=== PATIENT | female | born 1945 | race Native Hawaiian/Other Pacific Islander ===

== ENCOUNTER 2018-05-19 23:41 | Inpatient (IN) | payer MEDICARE ==
[2018-05-20] MEDS ORDERED: Enalaprilat 2.5 MG/2 ML IV ONE (00:21)
[2018-05-20 00:25] LABS: BASO # 0.1 K/uL (0.0-0.2); BASO % 1.2 % (0.0-2.0); EOS # 0.2 K/uL (0.0-0.7); EOS % 2.8 % (0.0-4.0); HEMOGLOBIN 15.7 g/dL (11.0-16.0); LYMPH # 1.5 K/uL (1.0-4.3); LYMPH % 19.2 % (20.0-40.0); MEAN CELL VOLUME 86.5 fL (81.0-99.0); MEAN CORPUSCULAR HEMOGLOBIN 29.8 pg (27.0-31.0); MEAN CORPUSCULAR HGB CONC 34.4 g/dL (33.0-37.0); MEAN PLATELET VOLUME 9.9 fL (7.2-11.7); MONO # 0.4 K/uL (0.0-0.8); MONO % 5.1 % (0.0-10.0); NEUT # 5.6 K/uL (1.8-7.0); NEUT % 71.7 % (50.0-75.0); NRBC % 0.1 % (0.0-2.0); RBC 5.29 Mil/uL (3.80-5.20); RED CELL DISTRIBUTION WIDTH 14.7 % (11.5-14.5); WHITE BLOOD COUNT 7.8 K/uL (4.8-10.8)
[2018-05-20] MEDS ORDERED: Enalaprilat 2.5 MG/2 ML ONE (00:34)
--- NOTE | 2018-05-20 00:42 | C.PDOC ---
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 She reports her blood pressure has been uncontrollably high. She admits to vomiting once. The patient denies any diarrhea, chest pain, headache or shortness of breath. Time Seen by Provider: 05/19/18 23:54 Chief Complaint (Nursing): Dizziness/Lightheaded History Per: Patient History/Exam Limitations: no limitations Onset/Duration Of Symptoms: Mins Current Symptoms Are (Timing): Still Present Recent travel outside of the [place]: No Past Medical History Reviewed: Historical Data, Nursing Documentation, Vital Signs Vital Signs: Last Vital Signs Temp 97.8 F 05/20/18 03:55 Pulse 60 05/20/18 05:01 Resp 17 05/20/18 05:01 BP 163/74 H 05/20/18 05:01 Pulse Ox 98 05/20/18 05:31 - Medical History PMH: HTN Other Surgeries: left breast lumpectomy Family History: States: Unknown Family Hx - Social History Hx Alcohol Use: No Hx Substance Use: No Review Of Systems Except As Marked, All Systems Reviewed And Found Negative. Constitutional: Negative for: Fever Cardiovascular: Negative for: Chest Pain Respiratory: Negative for: Shortness of Breath Gastrointestinal: Positive for: Nausea, Vomiting (x1 episode). Negative for: Diarrhea Neurological: Positive for: Dizziness Physical Exam - Physical Exam Appears: Well, Non-toxic, No Acute Distress Skin: Normal Color, Warm, Dry Head: Atraumatic, Normacephalic Eye(s): bilateral: Normal Inspection, PERRL, EOMI Oral Mucosa: Moist Chest: Symmetrical Cardiovascular: Rhythm Regular, No Murmur Respiratory: Normal Breath Sounds, No Rales, No Rhonchi, No Wheezing Gastrointestinal/Abdominal: Bowel Sounds, No Tenderness, No Distention Extremity: Bilateral: Atraumatic, Normal Color And Temperature, Normal ROM Neurological/Psych: Oriented x3, Normal Speech ED Course And Treatment - Laboratory Results Result Diagrams: 05/20/18 00:21 05/20/18 00:21 Interpretation Of ECG: Sinus : first degree AV lock (65 bpm). TN: 234 ms. left axis, LVH, PVCs, no ischemic changes. QRS 90 ms. QT-438 ms. QTc-455 ms O2 Sat by Pulse Oximetry: 98 (RA) Pulse Ox Interpretation: Normal - CT Scan/US Head Other Rad Studies (CT/US): Read By Radiologist, Radiology Report Reviewed CT/US Interpretation: FINDINGS: Brain: Mild atrophy. No intracranial hemorrhage. 0.8 x 0.7 x 0.6 cm dural calcification vs calcified. meningioma along right frontal convexity. Few scattered subtle foci of decreased attenuation within. periventricular/subcortical white matter. No definite edema. Ventricles: No hydrocephalus. Bones/joints: No acute fracture. Soft tissues: Unremarkable. Sinuses: Scattered minimal mucosal thickening. Minimal focal mucosal thickening or fluid of LEFT. sphenoid sinus. Mastoid air cells: No significant effusion. Orbits: Unremarkable as visualized. IMPRESSION: 1. Probable chronic microvascular ischemic changes. Acute infarction may be CT occult within first. 24 hours. If a focal deficit persists, consider followup CT or MRI for further evaluation. 2. Incidental/non-acute findings are described above. Progress Note: Upon arrival pressure is 205/97 Critical Care Time - Critical Care Note Total Time (in mins): 35 Documented critical care: time excludes all time spent performing seperately billable procedures. Medical Decision Making Medical Decision Making: Impression: 72 y/o female feeling dizzy, nauseous, and 1 episode of vomiting pt required and reciueved my immediate medical attention for life threatening illness. Plan: --EKG --CMP --Troponin I --CBC --Chest X-Ray --Vasotec 1.25 mg --Apresoline 50 mg PO CBC/Chem: unremarkable Troponin-negative vasotec 1.25 mg IVP given. 0202- On reeval Pt feels a little better. 0205- paged Dr. Montes hydralazine [address] head ordered and reviewed without acute pathology 0210- spoke with Dr. Montes. 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 - Scribe Statement The provider has reviewed the documentation as recorded by the Scribe (Imani Suarez) All medical record entries made by the Scribe were at my direction and personally dictated by me. I have reviewed the chart and agree that the record accurately reflects my personal performance of the history, physical exam, medical decision making, and the department course for this patient. I have also personally directed, reviewed, and agree with the discharge instructions and disposition.
[2018-05-20 01:13] LABS: ALB/GLOB RATIO 1.1 (1.0-2.1); ALBUMIN 4.2 g/dL (3.5-5.0); ALT/SGPT 56 U/L (9-52); AST/SGOT 41 U/L (14-36); BLOOD UREA NITROGEN 25 mg/dL (7-17); CALCIUM 9.6 mg/dl (8.6-10.4); GFR AFRICAN-AMERICAN 53; GFR NON-AFRICAN AMERICAN 44
[2018-05-20 05:13] VITALS: BMI 30.2
--- NOTE | 2018-05-20 07:10 | CP.PCM.HP ---
History of Present Illness - History of Present Illness History of Present Illness: chart reviewed Vitals- getting better on hydralazine CT Head pending Nurse notes noted uneventful labs noted 72 Y.o. Female with PMH Hypertension Hyperuricemia Breast Ca s/p lumpectomy s/p RT Cholesterol not on meds High sugar Cervical LAP- being followed up Patient admitted for acute high BP , vomiting and headache for further evaluation and management ROS headache vomtiing few hours before ER patient had physical exertion hours earlier- ballroom and line dancing no profuse sweating no SOB no tremors no sense of doom patient had good BP control for years then had one episode of acute BP elevation in December, and medication was adjusted and remained control, but had another acute BP eleveation on current treatment plan with head ache vomiting no profuse sweating no palpitation Sugery Immunization Social- non etoh non smoker Present on Admission - Present on Admission Any Indicators Present on Admission: No History of DVT/PE: No History of Uncontrolled Diabetes: No Urinary Catheter: No Decubitus Ulcer Present: No Review of Systems - Constitutional Constitutional: absent: Anorexia, Chills, Fatigue, Fever, Lethargy, Weight Loss , Weakness (headaches) - EENT Eyes: absent: Other Visual Disturbances Nose/Mouth/Throat: absent: Epistaxis, Nasal Obstruction, Sore Throat - Breasts Breasts: absent: Pain - Cardiovascular Cardiovascular: absent: Chest Pain, Diaphoresis, Dyspnea on Exertion, Palpitations, Syncope - Respiratory Respiratory: absent: Cough, Dyspnea on Exertion, Wheezing, Chest Congestion - Gastrointestinal Gastrointestinal: Vomiting (prior to admission). absent: Abdominal Pain, Constipation, Diarrhea - Genitourinary Genitourinary: absent: Difficulty Urinating, Flank Pain - Reproductive: Female Reproductive:Female: Post Menopausal - Menstruation Menstruation: Post Menopausal - Musculoskeletal Musculoskeletal: Muscle Cramps. absent: Abnormal Gait, Deformity, Limited Range of Motion - Integumentary Integumentary: absent: Rash, Skin Ulcer, Sores, Jaundice - Neurological Neurological: absent: Abnormal Hearing, Abnormal Movements, Abnormal Speech, Behavioral Changes, Confusion, Convulsions, Dizziness, Memory Loss, Sensory Deficit - Psychiatric Psychiatric: absent: Behavioral Changes, Confusion, Hallucinations, Panic Attacks - Endocrine Endocrine: absent: Excessive Sweating - Hematologic/Lymphatic Hematologic: Lymphadenopathy. absent: Easy Bleeding, Easy Bruising Past Patient History - Past Medical History & Family History Past Medical History?: Yes - Past Social History Smoking Status: Never Smoked - CARDIAC Hx Hypertension: Yes - PULMONARY Hx Respiratory Disorders: No - NEUROLOGICAL Hx Neurological Disorder: No - HEENT Hx HEENT Problems: No - RENAL Hx Chronic Kidney Disease: No - ENDOCRINE/METABOLIC Hx Endocrine Disorders: No - HEMATOLOGICAL/ONCOLOGICAL Hx Blood Disorders: No - INTEGUMENTARY Hx Dermatological Problems: No - MUSCULOSKELETAL/RHEUMATOLOGICAL Hx Musculoskeletal Disorders: No Hx Falls: No - GASTROINTESTINAL Hx Gastrointestinal Disorders: No - GENITOURINARY/GYNECOLOGICAL Hx Genitourinary Disorders: No - PSYCHIATRIC Hx Substance Use: No - SURGICAL HISTORY Hx Surgeries: Yes (left breast lumpectomy ) Hx Breast Biopsy: Yes Other/Comment: left breast lumpectomy - ANESTHESIA Hx Anesthesia: Yes Hx Anesthesia Reactions: No Hx Malignant Hyperthermia: No Has any member of the family had a problem w/ anesthesia?: No Meds Allergies/Adverse Reactions: Allergies Allergy/AdvReac Type Severity Reaction Status Date / Time No Known Allergies Allergy Verified 05/20/18 06:08 Physical Exam - Constitutional Appears: Non-toxic, No Acute Distress (currently in ICU , had vomiting prior to admission and improved after zofran) - Head Exam Head Exam: NORMAL INSPECTION, NORMOCEPHALIC - Eye Exam Eye Exam: Normal appearance. absent: Nystagmus - ENT Exam ENT Exam: Mucous Membranes Moist - Respiratory Exam Respiratory Exam: Clear to Auscultation Bilateral, NORMAL BREATHING PATTERN - Cardiovascular Exam Cardiovascular Exam: REGULAR RHYTHM - GI/Abdominal Exam GI & Abdominal Exam: Normal Bowel Sounds, Soft - Extremities Exam Extremities exam: Positive for: normal inspection. Negative for: joint swelling , pedal edema, tenderness - Back Exam Back exam: FULL ROM - Neurological Exam Neurological exam: Alert, Normal Gait, Oriented x3 - Psychiatric Exam Psychiatric exam: Normal Affect, Normal Mood - Skin Skin Exam: Intact, Normal Color Results - Vital Signs Recent Vital Signs: Last Vital Signs Temp 97.8 F 05/20/18 03:55 Pulse 60 05/20/18 06:01 Resp 16 05/20/18 06:01 BP 149/73 05/20/18 06:01 Pulse Ox 96 05/20/18 06:01 - Labs Result Diagrams: 05/20/18 00:21 05/20/18 00:21 Labs: Laboratory Results - last 24 hr 05/20/18 05/20/18 00:21 00:21 WBC 7.8 RBC 5.29 H Hgb 15.7 Hct 45.7 MCV 86.5 MCH 29.8 MCHC 34.4 RDW 14.7 H Plt Count 190 MPV 9.9 Neut % (Auto) 71.7 Lymph % (Auto) 19.2 L [place] % (Auto) 5.1 Eos % (Auto) 2.8 Baso % (Auto) 1.2 Neut # (Auto) 5.6 Lymph # (Auto) 1.5 [place] # (Auto) 0.4 Eos # (Auto) 0.2 Baso # (Auto) 0.1 Sodium 143 Potassium 3.8 Chloride 107 Carbon Dioxide 20 L Anion Gap 20 BUN 25 H Creatinine 1.2 Est GFR ( Amer) 53 Est GFR (Non-Af Amer) 44 Random Glucose 137 H Calcium 9.6 Total Bilirubin 0.6 AST 41 H ALT 56 H Alkaline Phosphatase 74 Troponin I < 0.0120 Total Protein 7.8 Albumin 4.2 Globulin 3.6 Albumin/Globulin Ratio 1.1 Assessment & Plan - Assessment and Plan (Free Text) Assessment: Patient with Hypertension Hyperuricemia hyperglycemi Cholesterolnemia, breast Ca s/p lumpectomy S/p RT admitted due to symptomatic acute elevation in BP , , CT head showed negative- further neurological evaluation- neuro has been consulted Due to history- second acute episode of acute BP elevation on her current treatment plan (was controlled ) now with headache and vomiting, although she is negative for heavy sweating palpitations, tremors, will work out for Pheochromocytoma also cardio work up as other ossible causes - 2 D echo Hyperuricemia- will continue her allopurinol LAP_ cervical LN that disappeared CT negative suspicious finding Hyperglycemia AIC pending GI Prophylaxis DVT prophylaxis Discussed with patient and - Date & Time Date: 05/20/18 Time: 08:40
--- NOTE | 2018-05-20 07:50 | CP.PCM.CON ---
History of Present Illness - History of Present Illness History of Present Illness: CONSULTATION DICTATED UNCONTROLLED HTN RECURRENT HEADACHE NAUSEA AND VOMITING WITH DIZZY WILL DO MRI BRAIN WITH ELISHA NON FOCAL EXAM EXCEPT NEUROPATHY ANTIVERT PRN CAT BRAIN NEGATIVE Past Patient History - Past Medical History & Family History Past Medical History?: Yes - Past Social History Smoking Status: Never Smoked - CARDIAC Hx Hypertension: Yes - PULMONARY Hx Respiratory Disorders: No - NEUROLOGICAL Hx Neurological Disorder: No - HEENT Hx HEENT Problems: No - RENAL Hx Chronic Kidney Disease: No - ENDOCRINE/METABOLIC Hx Endocrine Disorders: No - HEMATOLOGICAL/ONCOLOGICAL Hx Blood Disorders: No - INTEGUMENTARY Hx Dermatological Problems: No - MUSCULOSKELETAL/RHEUMATOLOGICAL Hx Musculoskeletal Disorders: No Hx Falls: No - GASTROINTESTINAL Hx Gastrointestinal Disorders: No - GENITOURINARY/GYNECOLOGICAL Hx Genitourinary Disorders: No - PSYCHIATRIC Hx Substance Use: No - SURGICAL HISTORY Hx Surgeries: Yes Other/Comment: left breast lumpectomy - ANESTHESIA Hx Anesthesia: Yes Hx Anesthesia Reactions: No Hx Malignant Hyperthermia: No Has any member of the family had a problem w/ anesthesia?: No Meds Allergies/Adverse Reactions: Allergies Allergy/AdvReac Type Severity Reaction Status Date / Time No Known Allergies Allergy Verified 05/20/18 06:08 - Medications Medications: Current Medications Allopurinol (Zyloprim) 100 mg PO DAILY [facility] Enoxaparin Sodium (Lovenox) 40 mg SC DAILY [facility] Hydralazine HCl (Apresoline) 50 mg PO BID [facility] Last Admin: 05/20/18 02:22 Dose: 50 mg Meclizine HCl (Antivert) 25 mg PO Q8H PRN PRN Reason: Dizziness Stop: 05/25/18 07:46 Pantoprazole Sodium (Protonix Ec Tab) 40 mg PO DAILY [facility] Results - Vital Signs Recent Vital Signs: Last Vital Signs Temp 97.8 F 05/20/18 03:55 Pulse 60 05/20/18 06:01 Resp 16 05/20/18 06:01 BP 149/73 05/20/18 06:01 Pulse Ox 96 05/20/18 06:01 - Labs Result Diagrams: 05/20/18 00:21 05/20/18 00:21 Labs: Laboratory Results - last 24 hr 05/20/18 05/20/18 00:21 00:21 WBC 7.8 RBC 5.29 H Hgb 15.7 Hct 45.7 MCV 86.5 MCH 29.8 MCHC 34.4 RDW 14.7 H Plt Count 190 MPV 9.9 Neut % (Auto) 71.7 Lymph % (Auto) 19.2 L [place] % (Auto) 5.1 Eos % (Auto) 2.8 Baso % (Auto) 1.2 Neut # (Auto) 5.6 Lymph # (Auto) 1.5 [place] # (Auto) 0.4 Eos # (Auto) 0.2 Baso # (Auto) 0.1 Sodium 143 Potassium 3.8 Chloride 107 Carbon Dioxide 20 L Anion Gap 20 BUN 25 H Creatinine 1.2 Est GFR ( Amer) 53 Est GFR (Non-Af Amer) 44 Random Glucose 137 H Calcium 9.6 Total Bilirubin 0.6 AST 41 H ALT 56 H Alkaline Phosphatase 74 Troponin I < 0.0120 Total Protein 7.8 Albumin 4.2 Globulin 3.6 Albumin/Globulin Ratio 1.1
--- NOTE | 2018-05-20 08:20 | CT ---
Date of service: 05/20/2018 PROCEDURE: CT HEAD WITHOUT CONTRAST. HISTORY: headache /uncontrollable hypertension COMPARISON: None available. TECHNIQUE: Axial computed tomography images were obtained through the head/brain without intravenous contrast. Radiation dose: Total exam DLP = 826 mGy-cm. This CT exam was performed using one or more of the following dose reduction techniques: Automated exposure control, adjustment of the mA and/or kV according to patient size, and/or use of iterative reconstruction technique. FINDINGS: HEMORRHAGE: No intracranial hemorrhage. BRAIN: Mild atrophy. Scattered focal lucencies in the subcortical and periventricular white matter suggestive for chronic microvascular ischemic change. 8 x 7 x 6 millimeter dural calcification versus calcified meningioma along the right frontal convexity. Right basal ganglia calcification. VENTRICLES: Unremarkable. No hydrocephalus. CALVARIUM: Unremarkable. PARANASAL SINUSES: Scattered mucosal thickening of the paranasal sinuses. Mild focal mucosal thickening or fluid of the left sphenoid sinus. MASTOID AIR CELLS: Unremarkable as visualized. No inflammatory changes. OTHER FINDINGS: None. IMPRESSION: Probable chronic microvascular ischemic changes. Additional findings as above. If symptoms persist, consider correlation with MRI. These findings were preliminarily reported at 3:11 a.m. on 05/20/[address] Jono Hernandez from [facility].
[2018-05-20] MEDS: Enoxaparin 40 mg Syringe SC SCH (09:55)
[2018-05-20] MEDS: Pantoprazole 40 mg EC Tab PO SCH (09:57)
[2018-05-20 11:02] LABS: FREE T4 1.01 ng/dL (0.78-2.19)
[2018-05-20] MEDS ORDERED: Gadodiamide 287 mg/ml 20 ml IV ONE (12:50)
--- NOTE | 2018-05-20 15:42 | MRI ---
Date of service: 05/20/2018 PROCEDURE: MRI BRAIN WITH AND WITHOUT CONTRAST HISTORY: HX BRAST CANCER COMPARISON: Noncontrast head CT 05/20/2018. TECHNIQUE: Multiplanar, multisequence MR images of the brain were obtained with (intravenous Omniscan 11 cc) and without intravenous contrast enhancement. FINDINGS: HEMORRHAGE: None DWI: Good corticomedullary differentiation is seen. Proportional, limited, diffuse expansion of the ventriculosulcal and cisternal spaces is appreciated with white matter lucency compatible with diffuse cerebral atrophy and chronic microangiopathy. No suspicious extra-axial fluid collection is identified and the midline brain anatomy appears grossly nonfocal as imaged. There is no mass effect throughout. BRAIN PARENCHYMA: No mass,mass effect or edema. No atrophy or chronic microvascular ischemic changes. ENHANCEMENT: No abnormal intracranial enhancement. VENTRICLES: Unremarkable. No hydrocephalus. CRANIUM: A small osteoma is suggests at the anterior, right frontal calvarium near the vertex once again. ORBITS: Grossly unremarkable. PARANASAL SINUSES/MASTOIDS: Clear VASCULAR SYSTEM: Skull base flow voids intact. OTHER FINDINGS: None . IMPRESSION: Limited age related neuro degenerative findings are appreciated without evidence of intracranial metastasis at this time. No abnormal intracranial enhancement is appreciated bulb or below the tentorium. No acute intracranial findings as per above.
--- NOTE | 2018-05-20 19:06 | CON ---
Copied To: Reddy Myers MD Attending MD: Reddy Myers MD DATE: 05/20/2018 REASON FOR CONSULTATION: Dizziness. CHIEF COMPLAINT: The patient was brought into [facility] with history of recurrent episode of dizziness associating with uncontrolled blood pressure. From neurological point of view, I was called into evaluate her for further management. 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 However, the dizziness continuous, is still at present. She had vomited once. She has no history of diarrhea. No history of visual loss or double vision associating with this problem. No history of focal weakness or any involuntary movements. Similar episodes happened in December. She was admitted in [facility] in [place]. She had extensive workup including MRI of the brain, all came out normal. Following this, the patient was seen by biometrics instructor and her blood pressure medication was titrated. Lately, her primary care physicians added beta-blockers on top of her medication. PAST MEDICAL HISTORY: Left breast lumpectomy more than 10 years ago, been treated with radiation and chemotherapy. Other past medical history including hypertension. PERSONAL HISTORY: Denies smoking or alcohol use. ALLERGIES: NO KNOWN ALLERGIES. REVIEW OF SYSTEMS: A 12-point system being reviewed. From neuro, dizziness. MEDICATIONS: Hydralazine, Lovenox, Protonix, Zyloprim. PHYSICAL EXAMINATION: VITAL SIGNS: Blood pressure 163/74, mean arterial pressure of 103, respiratory rate 16, temperature afebrile, pulse rate 60 regular. NECK: Supple. No carotid bruits. HEART: Sounds regular. CHEST: Fair air entry. EXTREMITIES: No edema in legs. No meningismus noted. CRANIAL NERVE EXAMINATION: Visual field intact. Pupils reactive. Extraocular movement normal. No nystagmus. No facial sensory deficit. No facial asymmetry. Hearing is normal. Tongue is midline. Good gag. Motor examination, outstretched hand with eyes closed, no drift noted. Power is symmetric on either side. Deep tendon reflexes, biceps and brachialis absent, triceps 1+ both knees are absent. Both ankles are absent. Plantars are downgoing. Sensory examination grossly intact. Coordination: [id number] test is intact. Gait is deferred at this time. WORKUP: WBC 7.8, hemoglobin 15.7, hematocrit 45.7, platelet 190. Sodium 143, potassium 3.8, chloride 107, bicarbonate 20, BUN 25, creatinine 1.2, GFR 53, glucose 137. CT of the head reviewed by me, no official report in the computer. No gross acute pathology is noted. Mild periventricular ischemic changes with basal ganglion calcification noted. Otherwise, CAT scan of the brain does not show any acute pathology. 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 The current examination does not show any long tract sign at present. The patient can be treated symptomatically hydration and proper blood pressure control. Since she had a recent MRI of the brain for similar complaints, which she was told are normal. At this point, I do not want to repeat the MRI of the brain unless her neuro status changed. The patient could be benefited on taking meclizine as a p.r.n. basis. The patient's condition been discussed with her. She agreed with plan of management. Reddy Myers MD MTDMarjan
--- NOTE | 2018-05-20 23:34 | CARD ---
APPROVED REPORT Date of service: 05/19/2018 EKG Measurement Heart [id number] <Conclusion> Sinus rhythm with 1st degree AV block with occasional premature ventricular complexes Left axis deviation Minimal voltage criteria for LVH, may be normal variant Abnormal ECG
--- NOTE | 2018-05-20 23:40 | CP.PCM.CON ---
History of Present Illness - History of Present Illness History of Present Illness: Consulted for HTN management Past Patient History - Past Medical History & Family History Past Medical History?: Yes - Past Social History Smoking Status: Never Smoked - CARDIAC Hx Hypertension: Yes - PULMONARY Hx Respiratory Disorders: No - NEUROLOGICAL Hx Neurological Disorder: No - HEENT Hx HEENT Problems: No - RENAL Hx Chronic Kidney Disease: No - ENDOCRINE/METABOLIC Hx Endocrine Disorders: No - HEMATOLOGICAL/ONCOLOGICAL Hx Blood Disorders: No - INTEGUMENTARY Hx Dermatological Problems: No - MUSCULOSKELETAL/RHEUMATOLOGICAL Hx Musculoskeletal Disorders: No Hx Falls: No - GASTROINTESTINAL Hx Gastrointestinal Disorders: No - GENITOURINARY/GYNECOLOGICAL Hx Genitourinary Disorders: No - PSYCHIATRIC Hx Substance Use: No - SURGICAL HISTORY Hx Surgeries: Yes (left breast lumpectomy ) Hx Breast Biopsy: Yes Other/Comment: left breast lumpectomy - ANESTHESIA Hx Anesthesia: Yes Hx Anesthesia Reactions: No Hx Malignant Hyperthermia: No Has any member of the family had a problem w/ anesthesia?: No Meds Allergies/Adverse Reactions: Allergies Allergy/AdvReac Type Severity Reaction Status Date / Time No Known Allergies Allergy Verified 05/20/18 06:08 - Medications Medications: Current Medications Acetaminophen (Tylenol 325mg Tab) 650 mg PO Q6 PRN PRN Reason: Headache Last Admin: 05/20/18 09:22 Dose: 650 mg Allopurinol (Zyloprim) 100 mg PO DAILY [facility] Last Admin: 05/20/18 09:56 Dose: 100 mg Enoxaparin Sodium (Lovenox) 40 mg SC DAILY [facility] Last Admin: 05/20/18 09:55 Dose: 40 mg Hydralazine HCl (Apresoline) 50 mg PO BID [facility] Last Admin: 05/20/18 17:13 Dose: Not Given Meclizine HCl (Antivert) 25 mg PO Q8H PRN PRN Reason: Dizziness Stop: 05/25/18 07:46 Last Admin: 05/20/18 13:17 Dose: 25 mg Nebivolol (Bystolic) 5 mg PO DAILY [facility] Last Admin: 05/20/18 09:56 Dose: 5 mg Ondansetron HCl (Zofran Inj) 4 mg IVP Q6 PRN PRN Reason: Nausea/Vomiting Pantoprazole Sodium (Protonix Ec Tab) 40 mg PO DAILY [facility] Last Admin: 05/20/18 09:57 Dose: 40 mg Results - Vital Signs Recent Vital Signs: Last Vital Signs Temp 98.1 F 05/20/18 20:00 Pulse 54 L 05/20/18 20:38 Resp 14 05/20/18 20:38 BP 141/68 05/20/18 20:38 Pulse Ox 99 05/20/18 20:00 - Labs Result Diagrams: 05/20/18 00:21 05/20/18 00:21 Labs: Laboratory Results - last 24 hr 05/20/18 05/20/18 05/20/18 00:21 00:21 10:20 WBC 7.8 RBC 5.29 H Hgb 15.7 Hct 45.7 MCV 86.5 MCH 29.8 MCHC 34.4 RDW 14.7 H Plt Count 190 MPV 9.9 Neut % (Auto) 71.7 Lymph % (Auto) 19.2 L [place] % (Auto) 5.1 Eos % (Auto) 2.8 Baso % (Auto) 1.2 Neut # (Auto) 5.6 Lymph # (Auto) 1.5 [place] # (Auto) 0.4 Eos # (Auto) 0.2 Baso # (Auto) 0.1 ESR Sodium 143 Potassium 3.8 Chloride 107 Carbon Dioxide 20 L Anion Gap 20 BUN 25 H Creatinine 1.2 Est GFR ( Amer) 53 Est GFR (Non-Af Amer) 44 Random Glucose 137 H Hemoglobin A1c Calcium 9.6 Total Bilirubin 0.6 AST 41 H ALT 56 H Alkaline Phosphatase 74 Troponin I < 0.0120 C-Reactive Protein 5.70 Total Protein 7.8 Albumin 4.2 Globulin 3.6 Albumin/Globulin Ratio 1.1 Triglycerides 173 H Cholesterol 221 H LDL Cholesterol Direct 121 HDL Cholesterol 36 Homocysteine 8.6 Free T4 TSH 3rd Generation 05/20/18 05/20/18 05/20/18 10:20 10:20 10:20 WBC RBC Hgb Hct MCV MCH MCHC RDW Plt Count MPV Neut % (Auto) Lymph % (Auto) [place] % (Auto) Eos % (Auto) Baso % (Auto) Neut # (Auto) Lymph # (Auto) [place] # (Auto) Eos # (Auto) Baso # (Auto) ESR 44 H Sodium Potassium Chloride Carbon Dioxide Anion Gap BUN Creatinine Est GFR ( Amer) Est GFR (Non-Af Amer) Random Glucose Hemoglobin A1c 5.5 Calcium Total Bilirubin AST ALT Alkaline Phosphatase Troponin I C-Reactive Protein Total Protein Albumin Globulin Albumin/Globulin Ratio Triglycerides Cholesterol LDL Cholesterol Direct HDL Cholesterol Homocysteine Free T4 1.01 TSH 3rd Generation 1.06
[2018-05-21 08:40] VITALS: O2SAT 96
--- NOTE | 2018-05-21 09:28 | CP.PCM.PN ---
Subjective - Date & Time of Evaluation Date of Evaluation: 05/21/18 Time of Evaluation: 10:44 - Subjective Subjective: chart reviewed patient's dizziness reported by nurse noted clarification of orders Heart rate low on Bystolic, Patient seen- some dizziness . no congestion noear pain no facial pain further discussion of low heart rate and changes in medication undergoing evaluation to rule out pheochromocytoma no SOB no chest pain had @d Echo in December with Dr Fields indeed heart rate goes down to 40's other than dizziness, no other complaints appetite is good bowel urine nocomplaints no weakness no neurolgical deficits Objective - Vital Signs/Intake and Output Vital Signs (last 24 hours): Temp Pulse Resp BP Pulse Ox 97.8 F 47 L 12 152/61 H 96 05/21/18 08:00 05/21/18 08:00 05/21/18 08:00 05/21/18 07:27 05/21/18 08:00 Intake and Output: 05/21/18 05/21/18 06:59 18:59 Intake Total 480 Balance 480 - Medications Medications: Current Medications Acetaminophen (Tylenol 325mg Tab) 650 mg PO Q6 PRN PRN Reason: Headache Last Admin: 05/20/18 09:22 Dose: 650 mg Allopurinol (Zyloprim) 100 mg PO DAILY [facility] Last Admin: 05/20/18 09:56 Dose: 100 mg Enoxaparin Sodium (Lovenox) 40 mg SC DAILY [facility] Last Admin: 05/20/18 09:55 Dose: 40 mg Hydralazine HCl (Apresoline) 50 mg PO BID [facility] Last Admin: 05/20/18 17:13 Dose: Not Given Meclizine HCl (Antivert) 25 mg PO Q8H PRN PRN Reason: Dizziness Stop: 05/25/18 07:46 Last Admin: 05/20/18 13:17 Dose: 25 mg Nebivolol (Bystolic) 5 mg PO DAILY [facility] Last Admin: 05/20/18 09:56 Dose: 5 mg Ondansetron HCl (Zofran Inj) 4 mg IVP Q6 PRN PRN Reason: Nausea/Vomiting Pantoprazole Sodium (Protonix Ec Tab) 40 mg PO DAILY [facility] Last Admin: 05/20/18 09:57 Dose: 40 mg - Labs Labs: 05/20/18 00:21 05/20/18 00:21 - Constitutional Appears: No Acute Distress (in bed- conversant, awake alert ) - Head Exam Head Exam: ATRAUMATIC, NORMOCEPHALIC ( ear exam no lesion unremarkable ) - Eye Exam Eye Exam: Normal appearance. absent: Nystagmus - ENT Exam ENT Exam: Mucous Membranes Moist - Neck Exam Neck Exam: Full ROM - Respiratory Exam Respiratory Exam: Clear to Ausculation Bilateral, NORMAL BREATHING PATTERN - Cardiovascular Exam Cardiovascular Exam: REGULAR RHYTHM (bradycardic ) - GI/Abdominal Exam GI & Abdominal Exam: Soft, Normal Bowel Sounds. absent: Tenderness - Exam Exam: NORMAL INSPECTION - Extremities Exam Extremities Exam: Full ROM. absent: Pedal Edema - Back Exam Back Exam: Full ROM. absent: rash noted - Neurological Exam Neurological Exam: Alert, Awake, Normal Gait, Oriented x3 - Psychiatric Exam Psychiatric exam: Normal Affect, Normal Mood - Skin Skin Exam: Intact, Normal Color Assessment and Plan - Assessment and Plan (Free Text) Assessment: Patient admitted for hypertensive emergency- with adjusting Bp meds- currently BP improving Noneurologic findings Bradycardic- 40-50 ,will adjust meds DC Bystolic, will not give amlodipine due to history of leg swelling will try in house Losartan and observe BP and HR and adjust accordingly - cardio on board Vomiting resolved Dizziness with no otological lesion , carotid ultrasound ordered PT ordered Work out for pheo ongoing CT MRI of head discussed , no acute finding Abnormal LFTS- Cholelithiasis- currently asymptomatic
[2018-05-21] MEDS: Pantoprazole 40 mg EC Tab PO SCH (10:48)
[2018-05-21] MEDS: Enoxaparin 40 mg Syringe SC SCH (10:48)
--- NOTE | 2018-05-21 12:06 | PN ---
Copied To: Reddy Myers MD Attending MD: Reddy Myers MD DATE: 05/21/2018 TIME OF EVALUATION: 07:05 a.m. NEUROLOGICAL PROBLEM: Dizziness, nausea, and vomiting. PHYSICAL EXAMINATION: VITAL SIGNS: Blood pressure 124/60, mean arterial pressure of 79, respiratory rate 18, temperature 97.9 with a pulse rate of 49 sinus. The patient had a good night sleep. She is already up, out of the bed and brushing her teeth. Still she is experiencing dizziness, which is related to her position or lying down. Not associating with nausea or vomiting. No visual disturbances. Rest of the examination, which is unchanged to compare with my previous examination. Her workup MRI of the brain with and without gadolinium, which has been reviewed by me and does not show any acute pathologies noted. Blood workup so far all were negative. Her vital signs being reviewed. Her blood pressure is somewhat well controlled. I prefer her to keep her mean arterial pressure around 100. However, the blood pressure is somewhat lower for her age as well as her history of chronic hypertension. This will be handled by the salvage clerk. I encouraged her hydration as well. No further workup is needed from neurological point of view. The patient will be followed while she is in the hospital. Reddy Myers MD
--- NOTE | 2018-05-21 12:29 | VASCLAB ---
Date of service: 05/21/2018 PROCEDURE: HISTORY: Headaches COMPARISON: None available. TECHNIQUE: Grayscale and duplex Doppler evaluation of the cervical carotid and vertebral arteries were performed. The common carotid, carotid bifurcations and cervical Internal Carotid Artery (ICA) and proximal External Carotid Artery (ECA) were evaluated. The vertebral arteries were evaluated for gross patency and flow direction. Report prepared by MARY Smith FINDINGS: RIGHT CAROTID ARTERIES: 1. Common Carotid Artery: No significant focal plaque formation of the right common carotid artery. Maximum Peak Systolic velocity: 70 cm/sec: End-diastolic velocity 13 cm/sec. 2. Carotid Bifurcation: Heterogeneous plaque formation. Maximum Peak Systolic velocity: 36 cm/sec: End-diastolic velocity 12 cm/sec. 3. Internal Carotid Artery: Plaque description: Heterogeneous 3.1. Proximal Segment: Peak systolic velocity 69 cm/sec: End-diastolic velocity 14 cm/sec - % stenosis 0-15% 3.2. Middle Segment: Peak systolic velocity 54 cm/sec: End-diastolic velocity 17 cm/sec - % stenosis 0-15% 3.3. Distal Segment: Peak systolic velocity 77 cm/sec: End-diastolic velocity 24 cm/sec - % stenosis 0-15% 4. External Carotid Artery: No significant focal plaque formation. Peak systolic velocity 145 cm/sec 5. ICA/CCA Ratio: 1.2 LEFT CAROTID ARTERIES: 1. Common Carotid Artery: No significant focal plaque formation of the left common carotid artery. Maximum Peak Systolic velocity: 91 cm/sec: End-diastolic velocity 12 cm/sec. 2. Carotid Bifurcation: Heterogeneous plaque formation. Maximum Peak Systolic velocity: 53 cm/sec: End-diastolic velocity 0 cm/sec. 3. Internal Carotid Artery: Plaque description: Heterogeneous 3.1. Proximal Segment: Peak systolic velocity 61 cm/sec: End-diastolic velocity 17 cm/sec - % stenosis 0-15% 3.2. Middle Segment: Peak systolic velocity 43 cm/sec: End-diastolic velocity 12 cm/sec - % stenosis 0-15% 3.3. Distal Segment: Peak systolic velocity 29 cm/sec: End-diastolic velocity 9 cm/sec - % stenosis 0-15% 4. External Carotid Artery: No significant focal plaque formation. Peak systolic velocity 104 cm/sec 5. ICA/CCA Ratio: 0.9 VERTEBRAL ARTERIES: 1. Right Vertebral Artery: The right vertebral artery flow direction is antegrade. 2. Left Vertebral Artery: The left vertebral artery flow direction is antegrade. OTHER FINDINGS: 1. Right Brachial Blood pressure: 155 mmHg. 2. Left Brachial Blood pressure: Unable to obtain IMPRESSION: RIGHT: Duplex scan does not suggest hemodynamically significant stenosis of the right extracranial carotid arteries. LEFT: Duplex scan does not suggest hemodynamically significant stenosis of the left extracranial carotid arteries.
--- NOTE | 2018-05-21 13:22 | US ---
Abdominal ultrasound History: Hypertensive emergency. Evaluate for pheochromocytoma. Comparison: None available. Technique: Real-time sonography was performed through the abdomen. Findings: Liver: 16 centimeters in length. Increased echogenicity of the hepatic parenchymal cortex suggestive for fatty infiltration versus hepatic parenchymal disease. Clinical correlation. Gallbladder: Cholelithiasis. Normal wall thickness of 1.3 millimeters. Negative sonographic Joshua's sign. Common bile duct measures 2.2 millimeters, within normal limits. Limited visualization of the pancreas. Spleen measures 8.7 centimeters in length, within normal limits. Visualized aorta and IVC are preserved. Right kidney: 10.5 x 4.2 x 4.4 centimeters. No calculi or hydronephrosis. Left Kidney: 10.9 x 4.8 x 3.9 centimeters. No calculi or hydronephrosis. Upper pole hypoechoic cyst measuring 1.3 x 0.8 x 1.1 centimeters. Impression: Increased echogenicity of the hepatic parenchymal cortex suggestive for fatty infiltration versus hepatic parenchymal disease. Clinical correlation. Cholelithiasis. Limited visualization of the pancreas. 1.3 centimeter left renal cyst. If there is persistent concern for pheochromocytoma, correlation with nuclear medicine study and or contrast-enhanced CT scan of the abdomen and pelvis is recommended.
[2018-05-21 16:20] VITALS: PULSE 54
[2018-05-21 21:21] VITALS: BP 138/70; RESP 13; TEMP 98.2
--- NOTE | 2018-05-21 21:42 | CP.PCM.DIS ---
Provider - Provider Date of Admission: 05/21/18 14:08 Attending physician: Deepali Montes MD Time Spent in preparation of Discharge (in minutes): 30 Hospital Course - Lab Results Lab Results: Micro Results 05/20/18 Unknown Nose MRSA Culture (Admit) - Final MRSA NOT DETECTED Most Recent Lab Values WBC 7.8 K/uL (4.8-10.8) 05/20/18 00:21 RBC 5.29 Mil/uL (3.80-5.20) H 05/20/18 00:21 Hgb 15.7 g/dL (11.0-16.0) 05/20/18 00:21 Hct 45.7 % (34.0-47.0) 05/20/18 00:21 MCV 86.5 fL (81.0-99.0) 05/20/18 00:21 MCH 29.8 pg (27.0-31.0) 05/20/18 00:21 MCHC 34.4 g/dL (33.0-37.0) 05/20/18 00:21 RDW 14.7 % (11.5-14.5) H 05/20/18 00:21 Plt Count 190 K/uL (130-400) 05/20/18 00:21 MPV 9.9 fL (7.2-11.7) 05/20/18 00:21 Neut % (Auto) 71.7 % (50.0-75.0) 05/20/18 00:21 Lymph % (Auto) 19.2 % (20.0-40.0) L 05/20/18 00:21 [place] % (Auto) 5.1 % (0.0-10.0) 05/20/18 00:21 Eos % (Auto) 2.8 % (0.0-4.0) 05/20/18 00:21 Baso % (Auto) 1.2 % (0.0-2.0) 05/20/18 00:21 Neut # (Auto) 5.6 K/uL (1.8-7.0) 05/20/18 00:21 Lymph # (Auto) 1.5 K/uL (1.0-4.3) 05/20/18 00:21 [place] # (Auto) 0.4 K/uL (0.0-0.8) 05/20/18 00:21 Eos # (Auto) 0.2 K/uL (0.0-0.7) 05/20/18 00:21 Baso # (Auto) 0.1 K/uL (0.0-0.2) 05/20/18 00:21 ESR 44 mm/hr (0-20) H 05/20/18 10:20 Sodium 143 mmol/L (132-148) 05/20/18 00:21 Potassium 3.8 mmol/L (3.6-5.2) 05/20/18 00:21 Chloride 107 mmol/L (98-107) 05/20/18 00:21 Carbon Dioxide 20 mmol/L (22-30) L 05/20/18 00:21 Anion Gap 20 (10-20) 05/20/18 00:21 BUN 25 mg/dL (7-17) H 05/20/18 00:21 Creatinine 1.2 mg/dL (0.7-1.2) 05/20/18 00:21 Est GFR ( Amer) 53 05/20/18 00:21 Est GFR (Non-Af Amer) 44 05/20/18 00:21 Random Glucose 137 mg/dL (65-105) H 05/20/18 00:21 Hemoglobin A1c 5.5 % (4.2-6.5) 05/20/18 10:20 Calcium 9.6 mg/dl (8.6-10.4) 05/20/18 00:21 Total Bilirubin 0.6 mg/dL (0.2-1.3) 05/20/18 00:21 AST 41 U/L (14-36) H 05/20/18 00:21 ALT 56 U/L (9-52) H 05/20/18 00:21 Alkaline Phosphatase 74 U/L (38-126) 05/20/18 00:21 Troponin I < 0.0120 ng/mL (0.00-0.120) 05/20/18 00:21 C-Reactive Protein 5.70 mg/L (0.0-9.9) 05/20/18 10:20 Total Protein 7.8 g/dL (6.3-8.3) 05/20/18 00:21 Albumin 4.2 g/dL (3.5-5.0) 05/20/18 00:21 Globulin 3.6 gm/dL (2.2-3.9) 05/20/18 00:21 Albumin/Globulin Ratio 1.1 (1.0-2.1) 05/20/18 00:21 Triglycerides 173 mg/dL (0-149) H 05/20/18 10:20 Cholesterol 221 mg/dL (0-199) H 05/20/18 10:20 LDL Cholesterol Direct 121 mg/dL (0-129) 05/20/18 10:20 HDL Cholesterol 36 mg/dL (30-70) 05/20/18 10:20 Homocysteine 8.6 umol/L (4.7-12.6) 05/20/18 10:20 Free T4 1.01 ng/dL (0.78-2.19) 05/20/18 10:20 TSH 3rd Generation 1.06 mIU/L (0.46-4.68) 05/20/18 10:20 Lyme Disease Screen <0.90 index 05/20/18 10:20 - Hospital Course Hospital Course: admitted for elevetad Bp with dizziness vomiting , CT and MRI head unremarkable no acute findings, no neurological findings ,BP medications adjusted, Bradycardia noted , Bystolic med discontinued to Losartan, and improved, patient to be home today with current medications and philip seen in the clinic next week Discharge Exam - Head Exam Head Exam: ATRAUMATIC, NORMOCEPHALIC ( ear exam no lesion unremarkable ) - Eye Exam Eye Exam: Normal appearance. absent: Nystagmus - ENT Exam ENT Exam: Mucous Membranes Moist - Neck Exam Neck exam: Full Rom - Respiratory Exam Respiratory Exam: Clear to PA & Lateral. absent: Wheezes - Cardiovascular Exam Cardiovascular Exam: REGULAR RHYTHM - GI/Abdominal Exam GI & Abdominal Exam: Normal Bowel Sounds, Soft. absent: Tenderness - Extremities Exam Extremities exam: full ROM - Neurological Exam Neurological exam: Alert, Normal Gait, Oriented x3 - Psychiatric Exam Psychiatric exam: Normal Affect, Normal Mood - Skin Skin Exam: Intact, Normal Color Discharge Plan - Follow Up Plan Condition: GUARDED Disposition: HOME/ ROUTINE
--- NOTE | 2018-05-22 07:15 | CP.PCM.PN ---
Subjective - Date & Time of Evaluation Date of Evaluation: 05/21/18 Time of Evaluation: 19:25 - Subjective Subjective: Patient seen and evaluated Denies chest pain and dyspnea HTN controlled and wants to go home Objective - Vital Signs/Intake and Output Vital Signs (last 24 hours): Temp Pulse Resp BP Pulse Ox 98.2 F 54 L 13 138/70 96 05/21/18 20:00 05/21/18 20:13 05/21/18 20:13 05/21/18 20:13 05/21/18 08:00 Intake and Output: 05/22/18 05/22/18 06:59 18:59 Intake Total 120 Balance 120 - Labs Labs: 05/20/18 00:21 05/20/18 00:21 Assessment and Plan - Assessment and Plan (Free Text) Assessment: HTN controlled HR 50-65 Stable for discharge F/U with Dr. Harper and Dr. Fields
== END 2018-05-21 22:00 | disposition home or self-care (01) | DRG 305 ==
LOC: C.ER 23:41 → C.9E 05-20 02:10 → C.9I 05-20 02:37 → OBSVTOIN 05-21 14:08
PROVIDERS: ADMIT Internal Medicine; ATTEND Internal Medicine
DX: I16.1 Hypertensive emergency (principal); G62.9 Polyneuropathy, unspecified; I10 Essential (primary) hypertension; K80.20 Calculus of gallbladder without cholecystitis without obstruction; R00.1 Bradycardia, unspecified; E79.0 Hyperuricemia without signs of inflammatory arthritis and tophaceous disease; Z92.3 Personal history of irradiation; Z85.3 Personal history of malignant neoplasm of breast